=== PATIENT | female | born 1990 | race Caucasian/White ===

== ENCOUNTER 2017-08-24 01:07 | Emergency (ER) | payer BC ==
[2017-08-24 01:25] VITALS: O2SAT 98; BMI 24.2
[2017-08-24 02:13] LABS: BASO # 0.1 K/uL (0.0-0.2); BASO % 0.6 % (0.0-2.0); EOS # 0.1 K/uL (0.0-0.7); EOS % 0.9 % (0.0-4.0); HEMOGLOBIN 12.3 g/dL (11.0-16.0); LYMPH # 3.9 K/uL (1.0-4.3); LYMPH % 43.2 % (20.0-40.0); MEAN CORPUSCULAR HEMOGLOBIN 30.9 pg (27.0-31.0); MEAN PLATELET VOLUME 7.4 fL (7.2-11.7); MONO # 0.6 K/uL (0.0-0.8); MONO % 6.8 % (0.0-10.0); NEUT # 4.4 K/uL (1.8-7.0); NEUT % 48.5 % (50.0-75.0); NRBC % 0.1 % (0.0-2.0); RBC 3.98 Mil/uL (3.80-5.20); RED CELL DISTRIBUTION WIDTH 12.8 % (11.5-14.5)
[2017-08-24 02:18] LABS: BLOOD UREA NITROGEN 13 mg/dL (7-17); CALCIUM 8.4 mg/dl (8.6-10.4); GFR AFRICAN-AMERICAN > 60; GFR NON-AFRICAN AMERICAN > 60
--- NOTE | 2017-08-24 02:27 | C.PDOC ---
History Of Present Illness 26 year old female presents to the ER with a complaint of SOB, chest tightness, and feeling like she cannot take a full breath since approximately 12:00. Patient also reports a tingling sensation and intermittent pain to the legs. Patient reports she flew to [place] on 07/19/17 and returned on on 08/01/17. Denies use of oral contraceptive pills, chest pain, fever, or URI symptoms. Time Seen by Provider: 08/24/17 01:26 Chief Complaint (Nursing): Shortness Of Breath History Per: Patient History/Exam Limitations: no limitations Onset/Duration Of Symptoms: Hrs Current Symptoms Are (Timing): Still Present Initiating Event: Other (Not known) Associated Symptoms: Other (Tingling to legs w/ intermittent pain). denies: Fever, Chest Pain Recent travel outside of the [place]: No Past Medical History Reviewed: Historical Data, Nursing Documentation, Vital Signs Vital Signs: Last Vital Signs Temp 98 F 08/24/17 02:57 Pulse 80 08/24/17 02:57 Resp 16 08/24/17 02:57 BP 120/73 08/24/17 02:57 Pulse Ox 98 08/24/17 05:15 Family History: States: Unknown Family Hx - Social History Hx Alcohol Use: No Hx Substance Use: No - Immunization History Hx Tetanus Toxoid Vaccination: Yes Hx Influenza Vaccination: No Hx Pneumococcal Vaccination: No Review Of Systems Constitutional: Negative for: Fever ENT: Negative for: Nose Congestion Cardiovascular: Negative for: Chest Pain Respiratory: Positive for: Shortness of Breath, Other (Chest tightness). Negative for: Cough, Wheezing Physical Exam - Physical Exam Appears: Non-toxic, No Acute Distress Skin: Normal Color, Warm, Dry Head: Atraumatic, Normacephalic Eye(s): bilateral: Normal Inspection Oral Mucosa: Moist Neck: Normal, Supple Chest: Symmetrical, No Tenderness Cardiovascular: Rhythm Regular Respiratory: Normal Breath Sounds, No Rales, No Rhonchi, No Wheezing Extremity: Normal ROM (x4), No Calf Tenderness, No Swelling Pulses: Left Dorsalis Pedis: Normal, Right Dorsalis Pedis: Normal Neurological/Psych: Oriented x3, Normal Speech, Normal Motor, Normal Sensation Gait: Steady ED Course And Treatment - Laboratory Results Result Diagrams: 08/24/17 02:07 08/24/17 02:07 O2 Sat by Pulse Oximetry: 98 (Room air) Pulse Ox Interpretation: Normal - Radiology CXR: Interpreted by Me, Viewed By Me CXR Interpretation: Yes: No Acute Disease. No: Infiltrates Progress Note: Blood work and CXR ordered, results were negative. Patient is resting comfortably in the ER in no acute distress. Dimer is normal which makes a PE unlikely and sx are not cardiac in nature, no URI sx. Pt t with no CP or respiratory distress at this time. No further testing is necessary a this time. Pt will be discharged home with instructions to follow up with PMD for further evaluation or return to the ER if symptoms persist. Disposition Counseled Patient/Family Regarding: Diagnosis, Need For Followup, Rx Given - Disposition Referrals: [facility] [Outside] Disposition: HOME/ ROUTINE Disposition Time: 02:52 Condition: STABLE Additional Instructions: Please follow up with PMD Return to ER if symptoms worsen Forms: [facility] (Filipino) - Clinical Impression Clinical Impression: Dyspnea, Paresthesia - PA / OPERATIONS ASSISTANT / Resident Statement MD/DO has reviewed & agrees with the documentation as recorded. - Scribe Statement The provider has reviewed the documentation as recorded by the Scribe Ariel Tim All medical record entries made by the Daleibstanislaw were at my direction and personally dictated by me. I have reviewed the chart and agree that the record accurately reflects my personal performance of the history, physical exam, medical decision making, and the department course for this patient. I have also personally directed, reviewed, and agree with the discharge instructions and disposition.
[2017-08-24 02:57] VITALS: BP 120/73; PULSE 80; RESP 16; TEMP 98
--- NOTE | 2017-08-24 07:00 | RAD ---
Chest x-ray two views History: Shortness of breath. Comparison: None available. Findings: No focal infiltrate or effusion. Heart size within normal limits. Small nodular density at the right lung apex may represent confluence of shadows with ribs and vessels. Bibasilar breast and nipple shadows. Upper lobe granulomatous changes. Impression: No focal infiltrate or effusion.
== END 2017-08-24 02:57 | disposition home or self-care (01) ==
LOC: C.ER 01:07
DX: R06.00 Dyspnea, unspecified (principal); R20.9 Unspecified disturbances of skin sensation